=== PATIENT | male | born 1980 | race Hispanic/Latino ===

== ENCOUNTER 2021-01-08 16:31 | Emergency (ER) | payer OTHER ==
[~2021-01-08] VITALS: Ht 180.3 cm; Wt 158.8 kg
[2021-01-08 16:40] VITALS: BP 115/74
[2021-01-08 16:52] VITALS: BP 128/65
[2021-01-08 17:28] VITALS: BP 128/65
[2021-01-08 17:33] LABS: BASOPHILS % (AUTO) 0.5 % (0.0-5.0); EOSINOPHILS % (AUTO) 3.2 % (0.0-8.0); HEMATOCRIT 43.6 % (42-54); LYMPHOCYTES % (AUTO) 19.1 % (21.0-51.0); MEAN CORPUSCULAR HEMOGLOBIN 28.5 pg (27.0-33.0); MEAN CORPUSCULAR HGB CONC 32.8 g/dL (32.0-36.0); MONOCYTES % (AUTO) 10.5 % (3.0-13.0); NEUTROPHILS % (AUTO) 65.8 % (40.0-77.0); PLATELET COUNT (AUTO) 258 K/uL (130-400); RED BLOOD CELL COUNT(AUTO) 5.01 MIL/uL (4.50-6.20); RED CELL DISTRIBUTION WIDTH 13.2 % (11.0-15.5); WHITE BLOOD COUNT (AUTO) 8.7 K/uL (4.8-10.8)
[2021-01-08 17:44] LABS: CREATININE 1.1 mg/dL (0.5-1.5)
[2021-01-08 17:49] LABS: ALBUMIN 3.5 g/dL (3.5-5.0); BILIRUBIN,TOTAL 0.3 mg/dL (0.2-1.0); TOTAL PROTEIN, SERUM 6.9 g/dL (6.0-8.3)
[2021-01-08 18:27] VITALS: BP 134/65
[2021-01-08 19:36] VITALS: BP 137/76
[2021-01-08] MEDS ORDERED: IBUP-2077 PO (19:49)
== END 2021-01-08 20:04 | disposition home or self-care (01) ==
LOC: EDH 16:31
DX: S40.011A Contusion of right shoulder, initial encounter (principal); S20.221A Contusion of right back wall of thorax, initial encounter; E66.01 Morbid (severe) obesity due to excess calories; V49.49XA Driver injured in collision with other motor vehicles in traffic accident, initial encounter; Y93.89 Activity, other specified; Y92.89 Other specified places as the place of occurrence of the external cause; Y99.8 Other external cause status
CPT/HCPCS: 36415; 70450; 71250; 72125; 73030; 80053; 85025

== ENCOUNTER 2021-09-17 00:54 | Emergency (ER) | payer OTHER ==
[~2021-09-17] VITALS: Ht 167.6 cm; Wt 179.6 kg
[~2021-09-17 00:54] MED LIST: IBUP-2077 PO
[2021-09-17] MEDS ORDERED: TETANUS/DIPHTHERIA TOXOID [ADULT] 0.5 ML VIAL IM ONE (01:30)
[2021-09-17] MEDS ORDERED: FLUORESCEIN SODIUM 1 STRIP STRIP OP SCH (01:30)
[2021-09-17] MEDS ORDERED: TETRACAINE HCL 0.5% 4 ML OPHTH SOLN OP SCH (01:30)
[2021-09-17] MEDS ORDERED: ERYT1OIN7 OD (02:18)
[2021-09-17 02:27] VITALS: BP 141/82
[2021-09-17] MEDS ORDERED: ERYTHROMYCIN BASE 0.5% OPHTH OINT 1 GM TUBE OU ONE (02:30)
== END 2021-09-17 02:37 | disposition home or self-care (01) ==
LOC: EDH 00:54
DX: S05.01XA Injury of conjunctiva and corneal abrasion without foreign body, right eye, initial encounter (principal); Z79.1 Long term (current) use of non-steroidal anti-inflammatories (NSAID); Z90.49 Acquired absence of other specified parts of digestive tract; F17.200 Nicotine dependence, unspecified, uncomplicated; X58.XXXA Exposure to other specified factors, initial encounter; Y93.89 Activity, other specified; Y92.89 Other specified places as the place of occurrence of the external cause; Y99.8 Other external cause status
CPT/HCPCS: 90471; 90714